=== PATIENT | female | born 1990 | race Caucasian/White ===

== ENCOUNTER 2018-06-03 13:42 | Emergency (ER) | payer BC ==
[~2018-06-03] VITALS: Ht 177.8 cm; Wt 106.2 kg
[2018-06-03] MEDS ORDERED: VIIBRYD1 EAC1 PO (13:58)
[2018-06-03] MEDS ORDERED: IBUPROFEN 800800 M1 PO (14:35)
[2018-06-03 14:43] VITALS: BP 114/81
== END 2018-06-03 14:45 | disposition home or self-care (01) ==
LOC: M.ERS 13:42
DX: S46.911A Strain of unspecified muscle, fascia and tendon at shoulder and upper arm level, right arm, initial encounter (principal); X50.3XXA Overexertion from repetitive movements, initial encounter; Y93.6A Activity, physical games generally associated with school recess, summer camp and children; Y92.89 Other specified places as the place of occurrence of the external cause; Y99.8 Other external cause status; F32.9 Major depressive disorder, single episode, unspecified